=== PATIENT | female | born 1955 | race Caucasian/White ===

== ENCOUNTER 2019-05-09 16:40 | Emergency (ER) | payer MEDICARE ==
[~2019-05-09] VITALS: Ht 160 cm; Wt 75.0 kg
[2019-05-09 16:45] VITALS: Ht 160 cm; Wt 75.0 kg
[2019-05-09] MEDS ORDERED: PAXIL30 MG PO (16:48)
[2019-05-09 19:14] LABS: BASOPHILS 0.4 % (0-2); EOSINOPHILS 0.5 % (0-7); HEMATOCRIT 36.7 % (36.0-48.0); HEMOGLOBIN 11.1 g/dL (12-16); IMMATURE GRANULOCYTES 0.1 % (0-5); LYMPHOCYTES 23.4 % (15-50); MCH 27.5 pg (26.0-34.0); MCHC 30.2 g/dL (31.0-37.0); MCV 91.1 fL (80.0-100.0); MEAN PLATELET VOLUME 8.7 fL (7.4-10.4); MONOCYTES 7.8 % (2-11); NEUTROPHILS 67.8 % (40-80); PLATELET COUNT 410 10x3/uL (130-400); RBC 4.03 10x6/uL (4.00-5.40); WBC 8.3 10x3/uL (4.8-10.8)
[2019-05-09] MEDS ORDERED: BUSPAR 15 MG TA15 MG PO ×2 (19:21)
[2019-05-09] MEDS ORDERED: CYCLOBENZAPRINE10 MG PO (19:22)
[2019-05-09] MEDS ORDERED: LOVENOX30 MG/0.3 SC (19:22)
[2019-05-09] MEDS ORDERED: VITAMIN D10000 UNI1 (19:23)
[2019-05-09] MEDS ORDERED: CALCIUM 250+D T1 TAB PO (19:23)
[2019-05-09] MEDS ORDERED: XANAX0.5 MG PO (19:23)
[2019-05-09 19:28] LABS: CALC OSMOLALITY 277 mosm/kg (275-300); CALCIUM 9.1 mg/dL (8.5-10.1); CARBON DIOXIDE 30.5 mmol/L (21.0-32.0); CHLORIDE - SERUM 101 mmol/L (98-107); CREATININE - SERUM 0.7 mg/dL (0.6-1.3); GLUCOSE 105 mg/dL (74-106); SODIUM 139 mmol/L (136-145); UREA NITROGEN 12 mg/dL (7-18); eGFR NON AFRICAN AMERICAN 89 mL/min (90-120)
[2019-05-09 19:34] LABS: ALBUMIN 2.8 g/dL (3.4-5.0); ALKALINE PHOSPHATASE 368 U/L (46-116); ALT (SGPT) 52 U/L (10-68); BILIRUBIN - TOTAL 0.48 mg/dL (0.2-1.3); PROTEIN - SERUM 7.3 g/dL (6.4-8.2)
[2019-05-09 21:37] VITALS: BP 144/76
== END 2019-05-09 21:39 | disposition home or self-care (01) ==
LOC: D.ER 16:40
PROVIDERS: Emergency Medicine
DX: T81.49XA Infection following a procedure, other surgical site, initial encounter (principal); K21.9 Gastro-esophageal reflux disease without esophagitis